=== PATIENT | male | born 1970 | race Caucasian/White ===

== ENCOUNTER 2021-04-06 12:32 | Emergency (ER) | payer OTHER, SELFPAY ==
[2021-04-06 13:28] VITALS: BP 162/109; PULSE 76; RESP 15; TEMP 36.6; O2SAT 97; BMI 38.0
[2021-04-06 15:33] VITALS: BP 139/86; PULSE 75; RESP 16; O2SAT 96
--- NOTE | 2021-04-06 15:51 | ED_ITS ---
HPI - Extremity Problem General Chief complaint: Extremity Problem,Nontraumatic Stated complaint: pinched nerve left hip Time Seen by Provider: 04/06/21 15:26 Source: patient Mode of arrival: Ambulatory History of Present Illness HPI Narrative: 50-year-old male daily smoker with noncontributory medical history presents with significant other and a chief complaint of severe left lower back pain since a work related low back injury on . He states that he was bending, lifting and twisting and felt a pulling sensation in his back. He did report to his place of work that day and presents today due to increasing pain. He denies any direct trauma. He has had no fever or chills. He does not take any blood thinners. He denies loss of control of bowel or bladder. He has no lower extremity weakness. Related Data Home Medications Medication Instructions Recorded Confirmed IBUPROFEN (Motrin / Advil) 0 mg PO * DOSE/FREQUENCY #0 07/30/08 Previous Rx's Medication Instructions Recorded cyclobenzaprine 10 mg tablet 10 mg PO TID PRN #14 tab 04/06/21 gabapentin 300 mg capsule 300 mg PO BEDTIME #14 cap 04/06/21 hydrocodone 5 mg-acetaminophen 325 1 tab PO Q4-6H PRN #10 tab 04/06/21 mg tablet ketorolac 10 mg tablet 10 mg PO Q6H PRN #14 tab 04/06/21 methylprednisolone 4 mg tablets in See Rx Instructions .ROUTE 04/06/21 a dose pack (Medrol (Brian)) .COMPLEX #21 ea Allergies Allergy/AdvReac Type Severity Reaction Status Date / Time morphine AdvReac Verified 04/06/21 13:32 Review of Systems Review of Systems Narrative: GENERAL: Denies chills, fatigue, malaise, fever, sweats. HEENT: Denies sinus pain, ear pain, sore throat, difficulty swallowing, dizziness. RESPIRATORY: Denies dyspnea, cough, wheezing, hemoptysis, sputum. CARDIOVASCULAR: Denies chest pain, palpitations, orthopnea, edema, GASTROINTESTINAL: Denies nausea, vomiting, abdominal pain, diarrhea, constipation, melena. : Denies dysuria, frequency, incontinence, hematuria, urinary retention. MUSCULOSKELETAL: See HPI SKIN: Denies rash, skin lesions, or other NEUROLOGIC: Denies weakness, headache, numbness, change in speech, confusion, seizures, incoordination. PSYCHIATRIC: No concerning psychosocial issues. 12 point review of systems is negative except for those stated above Patient History Social History Smoking Status: Current every day smoker Smoking Status: Current every day smoker alcohol intake frequency: 0-2 drinks per day Substance Use Type: marijuana Exam Narrative Exam Narrative: GENERAL: [50 year old patient appears stated age. Well-developed patient, in mild distress. HEAD: Atraumatic. Normocephalic. EYES: Pupils equal round and reactive. Extraocular motions intact. No scleral icterus. No injection or drainage. ENT: Nose without bleeding, purulent drainage. Throat without erythema, tonsillar hypertrophy or exudate. Airway patent. NECK: Trachea midline. Non tender CARDIOVASCULAR: Regular rate and rhythm without murmurs, gallops, or rubs. RESPIRATORY: Clear to auscultation. Breath sounds equal bilaterally. No wheezes, rales, or rhonchi. GASTROINTESTINAL: Abdomen soft, non-tender, nondistended. EXTREMITIES: No edema or joint tenderness. BACK: flakeboard line tender but free of any obvious external abnormalities. Patient exam notes decreased range of motion and muscle spasm, but no CVA tenderness, or vertebral point tenderness. There are no symptoms of cauda equina such as saddle anesthesia, and decreased reflexes, decreased sensation or strength. NEURO: AOx3. SKIN: No rash or erythema of visible areas Initial Vital Signs Initial Vital Signs: Vital Signs Temperature 98 F 04/06/21 13:28 Pulse Rate 76 04/06/21 13:28 Respiratory Rate 15 04/06/21 13:28 Blood Pressure 162/109 H 04/06/21 13:28 Pulse Oximetry 97 04/06/21 13:28 Course Orders Ordered: Discontinued Medications Cyclobenzaprine HCl (Cyclobenzaprine 10 Mg Tablet) 10 mg PO NOW ONE Stop: 04/06/21 16:07 Last Admin: 04/06/21 16:27 Dose: 10 mg Documented by: ATAYLOR Gabapentin (Gabapentin 300 Mg Capsule) 300 mg PO NOW ONE Stop: 04/06/21 16:07 Last Admin: 04/06/21 16:27 Dose: 300 mg Documented by: [email or web address] Ketorolac Tromethamine (Ketorolac 30 Mg/Ml Vial) 30 mg IM NOW ONE Stop: 04/06/21 16:07 Last Admin: 04/06/21 16:27 Dose: 30 mg Documented by: SOPHIE Prednisone (Prednisone 20 Mg Tablet) 60 mg PO NOW ONE Stop: 04/06/21 16:07 Last Admin: 04/06/21 16:27 Dose: 60 mg Documented by: SOPHIE Vital Signs Vital signs: Vital Signs - 8 hr 04/06/21 13:28 Temperature 98 F Pulse Rate 76 Respiratory Rate 15 Blood Pressure 162/109 H Pulse Oximetry 97 Discharge Plan Departure Patient Disposition: Home Clinical Impression: Acute lumbar radiculopathy Instructions: DI for Lumbar Radiculopathy Activity Restrictions/Additional Instructions: *You have been diagnosed with [acute left-sided lumbar radiculopathy] *What to do: *Please continue to take your regular medications as directed. [ x] New medication prescriptions sent to your pharmacy: [[facility] ] [ ] New medication written as a paper prescription [ ] No new medications given *Please follow up with your primary care provider in 2-3 days, call for an appointment. Let them know you were seen in the Emergency Department and that we ask that you be seen in follow up. We will electronically transmit a record of today's note if your PCP is in our system *If you do not have a primary care provider please contact the [facility] Resource line at [phone]. They will ask some questions about your medical history and help get you set up with a doctor in the community. *Return to Emergency Department if you should have any new, worsening or concerning symptoms, such as [fever greater than 101 F, shaking chills, worsening pain, persistent vomiting or other bothersome symptoms] Prescriptions: New cyclobenzaprine 10 mg tablet 10 mg PO TID PRN (Reason: muscle spasm) Qty: 14 RF: 0 hydrocodone-acetaminophen 5-325 mg tablet 1 tab PO Q4-6H PRN (Reason: pain) Qty: 10 RF: 0 ketorolac 10 mg tablet 10 mg PO Q6H PRN (Reason: pain) Qty: 14 RF: 0 gabapentin 300 mg capsule 300 mg PO BEDTIME Qty: 14 RF: 0 methylprednisolone [Medrol (Brian)] 4 mg tablets,dose pack See Rx Instructions .ROUTE .COMPLEX Qty: 21 RF: 0 No Action IBUPROFEN (Motrin / Advil) 0 mg PO * [place] DOSE/FREQUENCY Qty: 0 RF: 0 Referrals: [facility] [Outside] Stand Alone Forms: Work Release Note
[2021-04-06] MEDS: KETOROLAC 30 MG/ML VIAL IM (16:27)
[2021-04-06] MEDS: GABAPENTIN 300 MG CAPSULE PO (16:27)
[2021-04-06] MEDS: predniSONE 20 MG TABLET 60 MG PO (16:27)
[2021-04-06] MEDS: CYCLOBENZAPRINE 10 MG TABLET PO (16:27)
[2021-04-06 17:21] VITALS: BP 165/101; PULSE 80; RESP 18; O2SAT 99
== END 2021-04-06 17:21 | disposition home or self-care (01) ==
PROVIDERS: Emergency Provider Emergency Medicine
DX: M54.16 Radiculopathy, lumbar region (principal); S39.92XA Unspecified injury of lower back, initial encounter; X50.9XXA Other and unspecified overexertion or strenuous movements or postures, initial encounter; Y99.0 Civilian activity done for income or pay
CPT/HCPCS: 96372; 99283; J1885